=== PATIENT | female | born 1995 | race Two or more races ===

== ENCOUNTER 2018-06-17 16:45 | Emergency (ER) | payer MEDICAID ==
[~2018-06-17] VITALS: Ht 162.6 cm; Wt 64.4 kg
[~2018-06-17 16:45] MED LIST: PREN-153 OR
[2018-06-17 18:20] LABS: Basophils # (auto) 0 uL; Basophils % (auto) 0.3 % (0.0-2.0); Eosinophils # (auto) 0 uL; Eosinophils % (auto) 0.3 % (0.0-7.0); Hematocrit 40.3 % (36.0-46.0); Hemoglobin 13.7 g/dL (12.2-16.2); Lymphocytes # (auto) 1.5 uL; Lymphocytes % (auto) 19.1 % (10.0-50.0); Mean Corpuscular Hemoglobin 29.9 pg (28.0-32.0); Mean Corpuscular Hgb Conc. 33.9 g/dL (32.0-36.0); Mean Corpuscular Volume 88.2 fL (80.0-100.0); Monocytes # (auto) 0.4 uL; Monocytes % (auto) 4.8 % (0.0-12.0); Neutrophils % (auto) 75.5 % (37.0-80.0); Nucleated Red Blood Cells % 0.1 %; Platelet Count (auto) 281 10^3/uL (140-450); Red Blood Cells 4.57 10^6/uL (4.0-5.20); Red Cell Distribution Width 12.5 % (11.8-14.3); White Blood Cell 7.9 10^3/uL (4.4-10.8)
[2018-06-17 19:17] LABS: Urine Bacteria MOD /hpf (None Seen); Urine WBC 201 /hpf (0 - 5)
[2018-06-17 19:18] LABS: Urine Specific Gravity 1.026 (1.001-1.035)
[2018-06-17 19:26] VITALS: BP 139/66
[2018-06-17 22:03] LABS: Anion Gap 9.2 (5-15); Blood Urea Nitrogen 6 mg/dL (7-18); Carbon Dioxide 26.8 mmol/L (21-32); Chloride 103 mmol/L (98-107); Glucose 151 mg/dL (74-106); Potassium 3.6 mmol/L (3.5-5.1); Sodium 139 mmol/L (136-145)
[2018-06-17 22:04] LABS: Alkaline Phosphatase 96 U/L (45-117); Aspartate Aminotransferase 15 U/L (15-37); BUN/Creatinine Ratio 9.4; GFR African American 148 mL/min; GFR Non-African American 122 mL/min
[2018-06-17 22:05] LABS: Alanine Aminotransferase 28 U/L (13-56); Albumin 4.2 g/dL (3.4-5.0); Calcium 8.9 mg/dL (8.5-10.1)
[2018-06-17 22:06] LABS: Bilirubin, Total 0.4 mg/dL (0.2-1.0); Total Protein 8.1 g/dL (6.4-8.2)
== END 2018-06-17 20:36 | disposition home or self-care (01) ==
LOC: ER 16:52
DX: O23.41 Unspecified infection of urinary tract in pregnancy, first trimester (principal); Z3A.10 10 weeks gestation of pregnancy
CPT/HCPCS: 36415; 76801; 76817; 80053; 81001; 84702; 85025

== ENCOUNTER 2024-08-15 11:28 | Observation (INO) | payer MEDICAID ==
[~2024-08-15 11:28] MED LIST changes: -PREN-153 OR; +PREN1TAB71 OR
--- NOTE | 2024-08-16 15:21 | DVHDS2 ---
Physician Discharge Progress N Final Diagnosis: gdm Operations or Procedures: Operations or Procedures nst,sono Condition on Discharge: Good Disposition: Home Discharge Instructions: Diet: Consistent carbohydrate Activity: No Restrictions, As Tolerated Follow Up/Referral: Retrun weekly for nst/bpp Medications: na Follow Up Care: Specialist: 3d Discharge Statement: "Patient was advised to return to the ER or call 911 if any headaches, dizziness, shortness of breath, chest pain, abdominal pain, bleeding, fevers, or worsening of medical condition. Patient was counseled about treatment plan, medications, possible side effects, patientverbalized understanding. All questions were answered to the best of my ability. This discharge took greater then 30 minutes in planning, reviewing documentation, counseling the patient, and discussing with other team members." Visit Coding OBGYN Date of Service: Aug 15, 2024 Billing Provider: SALMA CABA DO PATIENT CARRIER Common Visit Codes: 35273-MPY/OBS SAME DATE (HIGH) PATIENT CARRIER Procedure Codes: 02121-13- NON-STRESS TEST SALMA CABA DO Aug 16, 2024 15:20
== END 2024-08-15 12:21 | disposition home or self-care (01) ==
LOC: LDRP 11:28
PROVIDERS: ADMIT Obstetrics & Gynecology; ATTEND Obstetrics & Gynecology
DX: O24.419 Gestational diabetes mellitus in pregnancy, unspecified control (principal); O62.9 Abnormality of forces of labor, unspecified; Z3A.32 32 weeks gestation of pregnancy; Z79.899 Other long term (current) drug therapy; Z98.890 Other specified postprocedural states
CPT/HCPCS: 59025; 81002; 94760; G0378

== ENCOUNTER 2024-08-22 11:03 | Observation (INO) | payer MEDICAID ==
--- NOTE | 2024-08-22 12:01 | DVH ---
BIOPHYSICAL PROFILE HISTORY: GDMA1 TECHNIQUE: Multiple transabdominal real-time grayscale sonographic images through the gravid uterus of the fetus with duplex Doppler color flow and M-mode spectral analysis FINDINGS: BIOPHYSICAL PROFILE: breathing score: Transabdominal movement score: 2 tone score: 2 Quantitative ANAM score: 2 (ANAM: 0.1 Cm.) Total score: 8/8 The cervix not measured Single live fetus in cephalic presentation. heart rate 139 beats per minute. Anterior Grade grade 2-3 placenta without previa or abruption Single live fetus at 33 weeks 3 days Biophysical profile score 8/8 corresponding to an ARANZA of 10/07/2024. Estimated weight not estimated g IMPRESSION: 1. Biophysical profile score: 8/8 HS:Y
--- NOTE | 2024-08-23 05:45 | DVHDS2 ---
Physician Discharge Progress N Final Diagnosis: GDM 33WKS Operations or Procedures: Operations or Procedures NST,SONO Other Interventions Other Interventions 33WKS Condition on Discharge: Good Disposition: Home Discharge Instructions: Diet: Consistent carbohydrate Activity: Light activity Medications: NA Follow Up Care: Specialist: 5D Discharge Statement: "Patient was advised to return to the ER or call 911 if any headaches, dizziness, shortness of breath, chest pain, abdominal pain, bleeding, fevers, or worsening of medical condition. Patient was counseled about treatment plan, medications, possible side effects, patientverbalized understanding. All questions were answered to the best of my ability. This discharge took greater then 30 minutes in planning, reviewing documentation, counseling the patient, and discussing with other team members." Visit Coding OBGYN Date of Service: Aug 22, 2024 Billing Provider: SALMA CABA DO JEWELRY POLISHER Common Visit Codes: 45968-[id number] OBS CARE (HIGH) JEWELRY POLISHER Procedure Codes: 67583-94- NON-STRESS TEST SALMA CABA DO Aug 23, 2024 05:45
== END 2024-08-22 12:36 | disposition home or self-care (01) ==
LOC: LDRP 11:03
PROVIDERS: ADMIT Obstetrics & Gynecology; ATTEND Obstetrics & Gynecology
DX: O24.419 Gestational diabetes mellitus in pregnancy, unspecified control (principal); Z3A.33 33 weeks gestation of pregnancy; Z79.899 Other long term (current) drug therapy
CPT/HCPCS: 59025; 76818; 81002; 82948; 82962; 94760; G0378

== ENCOUNTER 2024-08-29 12:25 | Observation (INO) | payer MEDICAID ==
--- NOTE | 2024-08-29 14:40 | DVH ---
BIOPHYSICAL PROFILE HISTORY: GDMA1 Comparison Study: none TECHNIQUE: Multiple real-time grayscale sonographic images through the gravid uterus of the fetus wi th duplex Doppler color flow and M-mode spectral analysis FINDINGS: BIOPHYSICAL PROFILE: breathing score: 2 movement score: 2 tone score: 2 Quantitative ANAM score: 2 (ANAM: 10.4 Cm.) Total score: 8 The cervix is not visualized. Single live fetus in cephalic presentation. heart rate 147 beats per minute. Anterior placenta without previa or abruption IMPRESSION: Biophysical profile score: 8
[2024-08-29] MEDS ORDERED: CEPH250C PO (15:24)
--- NOTE | 2024-08-29 15:50 | DVHDS2 ---
Physician Discharge Progress N Final Diagnosis: gdm 34 wks Operations or Procedures: Operations or Procedures nst34 wks,sono Consultations: Consultations seen by elvira Condition on Discharge: Good Disposition: Home Discharge Instructions: Diet: Consistent carbohydrate Activity: No Restrictions, As Tolerated Medications: na Follow Up Care: Specialist: 1w Discharge Statement: "Patient was advised to return to the ER or call 911 if any headaches, dizziness, shortness of breath, chest pain, abdominal pain, bleeding, fevers, or worsening of medical condition. Patient was counseled about treatment plan, medications, possible side effects, patientverbalized understanding. All questions were answered to the best of my ability. This discharge took greater then 30 minutes in planning, reviewing documentation, counseling the patient, and discussing with other team members." Visit Coding OBGYN Date of Service: Aug 29, 2024 Billing Provider: SALMA CABA DO IT SALES REPRESENTATIVE Common Visit Codes: 24826-COI/OBS DISCH DAY >30MIN IT SALES REPRESENTATIVE Consultation Codes: 09922-[id number] CONSULT <55MIN IT SALES REPRESENTATIVE Procedure Codes: 21469-82- NON-STRESS TEST SALMA CABA DO Aug 29, 2024 15:50
== END 2024-08-29 15:55 | disposition home or self-care (01) ==
LOC: LDRP 13:28 → UNDOADMOB 13:28 → LDRP 13:55
PROVIDERS: ADMIT Obstetrics & Gynecology; ATTEND Obstetrics & Gynecology
DX: O24.419 Gestational diabetes mellitus in pregnancy, unspecified control (principal); Z3A.34 34 weeks gestation of pregnancy; Z79.899 Other long term (current) drug therapy; Z98.890 Other specified postprocedural states
CPT/HCPCS: 59025; 76818; 81002; 82948; 82962; 94760; G0378

== ENCOUNTER 2024-09-05 11:17 | Observation (INO) | payer MEDICAID ==
[~2024-09-05 11:17] MED LIST changes: +CEPH250C PO
--- NOTE | 2024-09-05 15:05 | DVH ---
BIOPHYSICAL PROFILE HISTORY: gdma1 TECHNIQUE: Multiple transabdominal real-time grayscale sonographic images through the gravid uterus of the fetus with duplex Doppler color flow and M-mode spectral analysis FINDINGS: BIOPHYSICAL PROFILE: breathing score: 2 movement score: 2 tone score: 2 Quantitative ANAM score: 2 (ANAM: 13 Cm.) Total score: 8 IMPRESSION: Biophysical profile score: 8/8
--- NOTE | 2024-09-06 09:51 | DVHDS2 ---
Physician Discharge Progress N Final Diagnosis: gdm Operations or Procedures: Operations or Procedures nst,sono Condition on Discharge: Good Disposition: Home Discharge Instructions: Diet: Consistent carbohydrate Activity: No Restrictions, As Tolerated Medications: na Follow Up Care: Specialist: 1w Discharge Statement: "Patient was advised to return to the ER or call 911 if any headaches, dizziness, shortness of breath, chest pain, abdominal pain, bleeding, fevers, or worsening of medical condition. Patient was counseled about treatment plan, medications, possible side effects, patientverbalized understanding. All questions were answered to the best of my ability. This discharge took greater then 30 minutes in planning, reviewing documentation, counseling the patient, and discussing with other team members." Visit Coding OBGYN Date of Service: Sep 05, 2024 Billing Provider: SALMA CABA DO CISCO ADMINISTRATOR Common Visit Codes: 55286-WYWCEEP INP/OBS CARE (HIGH) CISCO ADMINISTRATOR Procedure Codes: 27424-19- NON-STRESS TEST SALMA CABA DO Sep 06, 2024 09:51
== END 2024-09-05 15:39 | disposition home or self-care (01) ==
LOC: LDRP 14:10
PROVIDERS: ADMIT Obstetrics & Gynecology; ATTEND Obstetrics & Gynecology
DX: O24.419 Gestational diabetes mellitus in pregnancy, unspecified control (principal); Z79.899 Other long term (current) drug therapy; Z98.890 Other specified postprocedural states; Z3A.35 35 weeks gestation of pregnancy
CPT/HCPCS: 76819; 81002; 82948; 82962; 94760; G0378; 59025; 76818

== ENCOUNTER 2024-09-08 13:16 | Observation (INO) | payer MEDICAID ==
--- NOTE | 2024-09-08 14:10 | DVH ---
CLINICAL HISTORY: Gestational diabetes. COMPARISON: US BIOPHYSICAL PROFILE on DOS: 09/05/24, US BIOPHYSICAL PROFILE on DOS: 08/29/24, US BIOPHY SICAL PROFILE on DOS: 08/22/24 TECHNIQUE: biophysical profile was performed. Transabdominal sonographic images of the fetus we re obtained. FINDINGS: The fetus is in cephalic position. heart rate measures 152 BPM. Amniotic fluid index measures 11.0 cm. The placenta is anterior in position. BPP profile is an overall score of 8/8, with 2/2 points for breathing, with at least one episode of breathing over a 30 second duration during a 30 minute observation, 2/2 points for m ovements, with 3 or more discrete body or limb movements, 2/2 points for tone, with one or more episodes of extremity extension with return to flexion, or opening and closing of hand, and 2/ 2 points for amniotic fluid, with at least 1 pocket of amniotic fluid that measures 2 cm in 2 perpend icular planes. IMPRESSION: BPP score of 8/8.
--- NOTE | 2024-09-10 14:12 | DVHDS2 ---
Physician Discharge Progress N Final Diagnosis: gdm 35wks Operations or Procedures: Operations or Procedures nst,sono 35wks Condition on Discharge: Good Disposition: Home Discharge Instructions: Diet: Consistent carbohydrate Activity: No Restrictions, As Tolerated Medications: na Follow Up Care: Specialist: 3d Discharge Statement: "Patient was advised to return to the ER or call 911 if any headaches, dizziness, shortness of breath, chest pain, abdominal pain, bleeding, fevers, or worsening of medical condition. Patient was counseled about treatment plan, medications, possible side effects, patientverbalized understanding. All questions were answered to the best of my ability. This discharge took greater then 30 minutes in planning, reviewing docum entation, counseling the patient, and discussing with other team members." Visit Coding OBGYN Date of Service: Sep 08, 2024 Billing Provider: SALMA CABA DO CORRECTIONAL COUNSELOR Common Visit Codes: 55567-GINVVAZ INP/OBS CARE (HIGH) CORRECTIONAL COUNSELOR Procedure Codes: 30551-75- NON-STRESS TEST SALMA CABA DO Sep 10, 2024 14:12
== END 2024-09-08 14:44 | disposition home or self-care (01) ==
LOC: LDRP 13:16
PROVIDERS: ADMIT Obstetrics & Gynecology; ATTEND Obstetrics & Gynecology
DX: O24.419 Gestational diabetes mellitus in pregnancy, unspecified control (principal); Z98.890 Other specified postprocedural states; Z79.899 Other long term (current) drug therapy; Z3A.35 35 weeks gestation of pregnancy
CPT/HCPCS: 59025; 76819; 81002; 82948; 82962; 87086; 94760; G0378; 76818

== ENCOUNTER 2024-09-12 06:22 | Observation (INO) | payer MEDICAID ==
[~2024-09-12] VITALS: Ht 157.5 cm; Wt 75.7 kg
--- NOTE | 2024-09-12 13:16 | DVH ---
BIOPHYSICAL PROFILE HISTORY: GDMA1 Comparison Study: None TECHNIQUE: Multiple real-time grayscale sonographic images through the gravid uterus of the fetus wi th duplex Doppler color flow and M-mode spectral analysis FINDINGS: BIOPHYSICAL PROFILE: breathing score: 2 movement score: 2 tone score: 2 Quantitative ANAM score: 2 (ANAM: 11.4 Cm.) Total score: 8 The cervix is not visualized Single live fetus in cephalic presentation. heart rate 155 beats per minute. Anterior placenta without previa or abruption IMPRESSION: Biophysical profile score: 8
--- NOTE | 2024-09-13 15:17 | DVHDS2 ---
Physician Discharge Progress N Final Diagnosis: gdm 36wks Operations or Procedures: Operations or Procedures nst 36wks,sono Condition on Discharge: Good Disposition: Home Discharge Instructions: Diet: Consistent carbohydrate Activity: Light activity Medications: na Follow Up Care: Specialist: 3d Discharge Statement: "Patient was advised to return to the ER or call 911 if any headaches, dizziness, shortness of breath, chest pain, abdominal pain, bleeding, fevers, or worsening of medical condition. Patient was counseled about treatment plan, medications, possible side effects, patientverbalized understanding. All questions were answered to the best of my ability. This discharge took greater then 30 minutes in planning, reviewing documentation, counseling the patient, and discussing with other team members." Visit Coding OBGYN Date of Service: Sep 12, 2024 Billing Provider: SALMA CABA DO BULK FOLDER Common Visit Codes: 28064-[id number] INP/OBS CARE (HIGH) BULK FOLDER Procedure Codes: 85297-05- NON-STRESS TEST SALMA CABA DO Sep 13, 2024 15:17
== END 2024-09-12 13:29 | disposition home or self-care (01) ==
LOC: LDRP 12:09 → UNDOADMOB 12:09 → LDRP 12:12
PROVIDERS: ADMIT Obstetrics & Gynecology; ATTEND Obstetrics & Gynecology
DX: O24.419 Gestational diabetes mellitus in pregnancy, unspecified control (principal); Z98.890 Other specified postprocedural states; Z79.899 Other long term (current) drug therapy; Z3A.36 36 weeks gestation of pregnancy
CPT/HCPCS: 59025; 76819; 81002; 94760; G0378; 76818

== ENCOUNTER 2024-09-19 06:18 | Observation (INO) | payer MEDICAID ==
--- NOTE | 2024-09-19 16:27 | DVH ---
Procedure: US BIOPHYSICAL PROFILE 09/19/2024 03:48 PM Indication: GDMA1 Comparison: US BIOPHYSICAL PROFILE on DOS: 09/12/24, US BIOPHYSICAL PROFILE on DOS: 09/08/24, US BIOPHYSI HERNESTO PROFILE on DOS: 09/05/24 Technique: Sonogram of gravid uterus utilizing grayscale and color techniques. FINDINGS: Single living intrauterine gestation. Presentation: Cephalic Placenta: Anterior, no previa heart rate: 133 bpm ANAM: 14.8 cm, DVP: 5.9 cm Maternal cervix: Not visualized Biophysical Profile: breathing score: 2 movement score: 2 tone: 2 Quantitative ANAM score: 2 Total score: 8/8 IMPRESSION: 1. Single living as above. 2. Biophysical profile score: 8/8.
--- NOTE | 2024-09-19 21:33 | DVHDS2 ---
Physician Discharge Progress N Final Diagnosis: testing for GDM, A1 Operations or Procedures: Operations or Procedures 29yo IUP@37.1wks VSS NST reactive BPP wnl FKC/labor precautions reviewed Other Interventions Other Interventions [address] [address] Ph: [phone] DIAGNOSTIC IMAGING Diagnostic Imaging Report : [id number] Signed PATIENT: AUDELIA BURKS ACCT: [id number] UNIT: [id number] : 1995 LOC: [facility] ROOM / BED: TRIAGE2 / A AGE / SEX: 29 / F ADM STATUS: ADM IN SERVICE 1510 ORDERING PHYSICIAN: ADRI DUNNE CNM PROCEDURE(s): BPP - BIOPHYSICAL PROFILE REASON: GDMA1 ORDER NUMBER(s): [id number], ACCESSION NUMBER(s): [id number] Procedure: US BIOPHYSICAL PROFILE 09/19/2024 03:48 PM Indication: GDMA1 Comparison: US BIOPHYSICAL PROFILE on DOS: 09/12/24, US BIOPHYSICAL PROFILE on DOS: 09/08/24, US BIOPHYSICAL PROFILE on DOS: 09/05/24 Technique: Sonogram of gravid uterus utilizing grayscale and color techniques. FINDINGS: Single living intrauterine gestation. Presentation: Cephalic Placenta: Anterior, no previa heart rate: 133 bpm ANAM: 14.8 cm, DVP: 5.9 cm Maternal cervix: Not visualized Biophysical Profile: breathing score: 2 movement score: 2 tone: 2 Quantitative ANAM score: 2 Total score: 8/8 IMPRESSION: 1. Single living as above. 2. Biophysical profile score: 8/8. ATED BY: ILA WHARTON MD DICTATED DATE/TIME: 09/19/241623 SIGNED BY: ILA WHARTON MD SIGNED DATE/TIME: 09/19/241623 CC: Condition on Discharge: Stable Disposition: Home Discharge Instructions: Diet: Consistent carbohydrate Activity: No Restrictions, As Tolerated Medications: see med list Follow Up Care: Specialist: f/u in 1 wk Discharge Statement: "Patient was advised to return to the ER or call 911 if any headaches, dizziness, shortness of breath, chest pain, abdominal pain, bleeding, fevers, or worsening of medical condition. Patient was counseled about treatment plan, medications, possible side effects, patientverbalized understanding. All questions were answered to the best of my ability. This discharge took greater then 30 minutes in planning, reviewing documentation, counseling the patient, and discussing with other team members." Visit Coding OBGYN Date of Service: Sep 19, 2024 Billing Provider: ADRI DUNNE CNM SIZING SPRAYER Common Visit Codes: 05703-UEBLYRI OBS CARE (HIGH) SIZING SPRAYER Procedure Codes: 86667-81- NON-STRESS TEST ADRI DUNNE CNM Sep 19, 2024 21:33
== END 2024-09-19 16:43 | disposition home or self-care (01) ==
LOC: LDRP 15:08 → UNDOADMOB 15:08 → LDRP 15:15
PROVIDERS: ADMIT Obstetrics & Gynecology; ATTEND Obstetrics & Gynecology
DX: O24.419 Gestational diabetes mellitus in pregnancy, unspecified control (principal); Z98.890 Other specified postprocedural states; Z79.899 Other long term (current) drug therapy; Z3A.37 37 weeks gestation of pregnancy
CPT/HCPCS: 76819; 81002; 82948; 94760; G0378; 59025; 76818

== ENCOUNTER 2024-09-24 14:18 | Observation (INO) | payer MEDICAID ==
--- NOTE | 2024-09-24 15:19 | DVH ---
BIOPHYSICAL PROFILE HISTORY: gdma1 Comparison Study: 09/19/2024 TECHNIQUE: Multiple real-time grayscale sonographic images through the gravid uterus of the fetus wi th duplex Doppler color flow and M-mode spectral analysis FINDINGS: BIOPHYSICAL PROFILE: breathing score: 2 movement score: 2 tone score: 2 Quantitative ANAM score: 2 (ANAM: 14.2 Cm.) Total score: 8 The cervix is not visualized Single live fetus in cephalic presentation. heart rate 147 beats per minute. Anterior placenta without previa or abruption IMPRESSION: Biophysical profile score: 8
[2024-09-24 15:46] LABS: Basophils # (auto) 0 10 ^3/uL (0-0.2); Basophils % (auto) 0.2 % (0.0-2.0); Eosinophils # (auto) 0 10 ^3/uL (0-0.8); Eosinophils % (auto) 0.5 % (0.0-7.0); Hematocrit 32.6 % (36.0-46.0); Hemoglobin 10.5 g/dL (12.2-16.2); Lymphocytes # (auto) 1.1 10 ^3/uL (0.4-5.4); Lymphocytes % (auto) 19.4 % (10.0-50.0); Mean Corpuscular Hemoglobin 27.2 pg (28.0-32.0); Mean Corpuscular Hgb Conc. 32.1 g/dL (32.0-36.0); Mean Corpuscular Volume 84.8 fL (80.0-100.0); Monocytes # (auto) 0.5 10 ^3/uL (0-1.3); Monocytes % (auto) 8.7 % (0.0-12.0); Neutrophils # (auto) 4.1 10 ^3/uL (1.6-8.6); Neutrophils % (auto) 71.2 % (37.0-80.0); Nucleated Red Blood Cells % 0.2 %; Platelet Count (auto) 271 10^3/uL (140-450); Red Blood Cells 3.85 10^6/uL (4.0-5.20); Red Cell Distribution Width 15.2 % (11.8-14.3); White Blood Cell 5.8 10^3/uL (4.4-10.8)
[2024-09-24 16:03] LABS: Albumin 3.9 g/dL (3.2-4.8); Anion Gap 6 (5-15); BUN/Creatinine Ratio 16.3 (10.0-20.0); Calcium 9.2 mg/dL (8.7-10.4); Carbon Dioxide 24 mmol/L (20-31); Glucose 97 mg/dL (74-106); Potassium 3.6 mmol/L (3.5-5.1); Sodium 138 mmol/L (136-145); Total Protein 6.5 g/dL (5.7-8.2); Uric Acid 4.1 mg/dL (3.1-7.8)
[2024-09-24 16:04] LABS: Bilirubin, Total 0.3 mg/dL (0.2-1.0)
[2024-09-24 16:07] LABS: Alanine Aminotransferase < 9 U/L (7-40); Alkaline Phosphatase 183 U/L (46-116); Aspartate Aminotransferase 10 U/L (13-40); Blood Urea Nitrogen 7 mg/dL (9-23); Chloride 108 mmol/L (98-107)
[2024-09-24 16:11] LABS: Urine Bacteria FEW /hpf (None Seen); Urine Blood Negative /uL (Negative); Urine Clarity Turbid (Clear); Urine Color Yellow (Yellow); Urine Protein, UAD TRACE (Negative); Urine Squamous Epithelial Cell MANY /hpf (<5); Urine Urobilinogen 4 mg/dL (Negative); Urine WBC 3 /HPF (0-5)
[2024-09-24 16:12] LABS: Protein, Urine 19.8 mg/dL (1-14)
[2024-09-24 16:14] LABS: Creatinine, Urine 147.11 mg/dL (30.0-125.0); Urine Protein/Creatinine Ratio 0.13
[2024-09-24 16:29] LABS: INR 0.98 (0.9-1.15); Partial Thromboplastin Time 27.8 SEC (24.5-34.5); Prothrombin Time 10.4 sec (9.3-11.8)
--- NOTE | 2024-09-24 22:24 | DVHDS2 ---
Physician Discharge Progress N Final Diagnosis: testing for GDMA1 and PreE labs Operations or Procedures: Operations or Procedures 29yo IUP@38.1wks, +FM, Denies LOF/VB/DIAS/vision changes/RUQ pain. VSS NST reactive FKC/PreE/labor precautions reviewed f/u on 09/26/24 AM with [address] Márquez consulted, agrees with POC. Laboratory Tests Test 09/24/24 15:00 09/24/24 15:24 09/24/24 15:33 Range/Units Urine Color Yellow Yellow Urine Clarity Turbid H Clear Urine pH 6.0 5.0-9.0 Urine Specific [place] 1.030 1.001-1.035 Urine Protein Trace H Negative Urine Ketones 1+ H Negative Urine Blood Negative Negative /uL Urine Nitrite Negative Negative Urine Bilirubin Negative Negative Urine Urobilinogen 4 H Negative mg/dL Urine Leukocyte Esterase 2+ Negative /uL Urine RBC 2 0 - 4 /hpf Urine Microscopic WBC 3 0-5 /HPF Urine Squamous Epithelial Cells Many <5 /hpf Urine Bacteria Few H None Seen /hpf Urine Creatinine 147.11 H 30.0-125.0 mg/dL Urine Protein/Creatinine Ratio 0.13 Urine Glucose Trace Normal mg/dL Urine Total Protein 19.8 H 1-14 mg/dL White Blood Count 5.8 4.4-10.8 10^3/uL Red Blood Count 3.85 L 4.0-5.20 10^6/uL Hemoglobin 10.5 L 12.2-16.2 g/dL Hematocrit 32.6 L 36.0-46.0 % Mean Corpuscular Volume 84.8 80.0-100.0 fL Mean Corpuscular Hemoglobin 27.2 L 28.0-32.0 pg Mean Corpuscular Hemoglobin Concent 32.1 32.0-36.0 g/dL Red Cell Distribution Width 15.2 H 11.8-14.3 % Platelet Count 271 140-450 10^3/uL Mean Platelet Volume 8.4 6.9-10.8 fL Neutrophils (%) (Auto) 71.2 37.0-80.0 % Lymphocytes (%) (Auto) 19.4 10.0-50.0 % Monocytes (%) (Auto) 8.7 0.0-12.0 % Eosinophils (%) (Auto) 0.5 0.0-7.0 % Basophils (%) (Auto) 0.2 0.0-2.0 % Neutrophils # (Auto) 4.1 1.6-8.6 10 ^3/uL Lymphocytes # (Auto) 1.1 0.4-5.4 10 ^3/uL Monocytes # (Auto) 0.5 0-1.3 10 ^3/uL Eosinophils # (Auto) 0 0-0.8 10 ^3/uL Basophils # (Auto) 0 0-0.2 10 ^3/uL Nucleated Red Blood Cells 0.2 % Prothrombin Time 10.4 9.3-11.8 sec Prothrombin Time INR 0.98 0.9-1.15 Activated Partial Thromboplast Time 27.8 24.5-34.5 SEC Fibrinogen 416 H 177-375 mg/dL Sodium Level 138 136-145 mmol/L Potassium Level 3.6 3.5-5.1 mmol/L Chloride Level 108 H 98-107 mmol/L Carbon Dioxide Level 24 20-31 mmol/L Anion Gap 6 5-15 Blood Urea Nitrogen 7 L 9-23 mg/dL Creatinine 0.43 L 0.550-1.02 mg/dL Glomerular Filtration Rate Calc 135 >90 mL/min BUN/Creatinine Ratio 16.3 10.0-20.0 Serum Glucose 97 74-106 mg/dL Uric Acid 4.1 3.1-7.8 mg/dL Calcium Level 9.2 8.7-10.4 mg/dL Total Bilirubin 0.3 0.2-1.0 mg/dL Aspartate Amino Transferase (AST) 10 L 13-40 U/L Alanine Aminotransferase (ALT) < 9 7-40 U/L Alkaline Phosphatase 183 H 46-116 U/L Total Protein 6.5 5.7-8.2 g/dL Albumin 3.9 3.2-4.8 g/dL POC Glucose 103 70-106 mg/dl Other Interventions Other Interventions [address] [address] Ph: [phone] DIAGNOSTIC IMAGING Diagnostic Imaging Report : [id number] Signed PATIENT: AUDELIA BURKS ACCT: [id number] UNIT: [id number] : 1995 LOC: [facility] ROOM / BED: TRIAGE3 / A AGE / SEX: 29 / F ADM STATUS: ADM IN SERVICE 1423 ORDERING PHYSICIAN: ADRI DUNNE CNM PROCEDURE(s): BPP - BIOPHYSICAL PROFILE REASON: gdma1 ORDER NUMBER(s): [id number], ACCESSION NUMBER(s): [id number] BIOPHYSICAL PROFILE HISTORY: gdma1 Comparison Study: 09/19/2024 TECHNIQUE: Multiple real-time grayscale sonographic images through the gravid uterus of the fetus with duplex Doppler color flow and M-mode spectral analysis FINDINGS: BIOPHYSICAL PROFILE: breathing score: 2 movement score: 2 tone score: 2 Quantitative ANAM score: 2 (ANAM: 14.2 Cm.) Total score: 8 The cervix is not visualized Single live fetus in cephalic presentation. heart rate 147 beats per minute. Anterior placenta without previa or abruption IMPRESSION: Biophysical profile score: 8 ATED BY: DWAYNE LAZAR MD DICTATED DATE/TIME: 09/24/241515 SIGNED BY: DWAYNE LAZAR MD SIGNED DATE/TIME: 09/24/241515 CC: Condition on Discharge: Stable Disposition: Home Discharge Instructions: Diet: Regular Activity: No Restrictions, As Tolerated Medications: see med list Follow Up Care: Specialist: f/u on 09/26/24 AM with 24 hour urine collection Discharge Statement: "Patient was advised to return to the ER or call 911 if any headaches, dizziness, shortness of breath, chest pain, abdominal pain, bleeding, fevers, or worsening of medical condition. Patient was counseled about treatment plan, medications, possible side effects, patientverbalized understanding. All questions were answered to the best of my ability. This discharge took greater then 30 minutes in planning, reviewing docume ntation, counseling the patient, and discussing with other team members." Visit Coding OBGYN Date of Service: Sep 24, 2024 Billing Provider: ADRI DUNNE CNM MICA PATCHER Common Visit Codes: 18805-[id number] OBS CARE (HIGH) MICA PATCHER Procedure Codes: 43211-23- NON-STRESS TEST ADRI DUNNE CNM Sep 24, 2024 22:24
== END 2024-09-24 17:11 | disposition home or self-care (01) ==
LOC: LDRP 14:18
PROVIDERS: ADMIT Obstetrics & Gynecology; ATTEND Obstetrics & Gynecology
DX: O24.419 Gestational diabetes mellitus in pregnancy, unspecified control (principal); Z3A.38 38 weeks gestation of pregnancy; Z79.899 Other long term (current) drug therapy; Z86.2 Personal history of diseases of the blood and blood-forming organs and certain disorders involving the immune mechanism
CPT/HCPCS: 36415; 59025; 76819; 80053; 81001; 81002; 82570; 82948; 82962; 84156; 84550; 85025; 85384; 85610; 85730; 94760; G0378

== ENCOUNTER 2024-09-26 06:21 | Observation (INO) | payer MEDICAID ==
[2024-09-26 12:46] LABS: Urine Bacteria FEW /hpf (None Seen); Urine Blood Negative /uL (Negative); Urine Clarity Turbid (Clear); Urine Color Yellow (Yellow); Urine Mucus FEW (None Seen); Urine Protein, UAD TRACE (Negative); Urine Specific Gravity 1.027 (1.001-1.035); Urine Squamous Epithelial Cell MANY /hpf (<5); Urine Urobilinogen Normal (Negative); Urine WBC 23 /HPF (0-5)
[2024-09-26 13:00] LABS: Protein, Urine 22.4 mg/dL (1-14)
[2024-09-26 13:02] LABS: Creatinine, Urine 142.3 mg/dL (30.0-125.0); Urine Protein/Creatinine Ratio 0.16
--- NOTE | 2024-09-26 13:19 | DVH ---
BIOPHYSICAL PROFILE HISTORY: GDMA2 TECHNIQUE: Multiple transabdominal real-time grayscale sonographic images through the gravid uterus of the fetus with duplex Doppler color flow and M-mode spectral analysis FINDINGS: BIOPHYSICAL PROFILE: breathing score: 2 movement score: 2 tone score: 2 Quantitative ANAM score: 2 (ANAM: 16.2 Cm.) Total score: 8 The cervix well visualized. Single live fetus in cephalic presentation. heart rate 173 beats per minute. Anterior placenta without previa or abruption IMPRESSION: Biophysical profile score: 8
[2024-09-26 13:51] LABS: 24 Hr. Total Protein, Urine 11.9 mg/24 Hr (<149.1)
--- NOTE | 2024-09-27 12:58 | DVHDS2 ---
Physician Discharge Progress N Final Diagnosis: iup at 30wks with gdm and pih Operations or Procedures: Operations or Procedures nst,sono Condition on Discharge: Good Disposition: Home Discharge Instructions: Diet: Regular Activity: Light activity Medications: na Follow Up Care: Specialist: 4d Discharge Statement: "Patient was advised to return to the ER or call 911 if any headaches, dizziness, shortness of breath, chest pain, abdominal pain, bleeding, fevers, or worsening of medical condition. Patient was counseled about treatment plan, medications, possible side effects, patientverbalized understanding. All questions were answered to the best of my ability. This discharge took greater then 30 minutes in planning, reviewing documentation, counseling the patient, and discussing with other team members." Visit Coding OBGYN Date of Service: Sep 26, 2024 Billing Provider: SALMA CABA DO MANAGER FLOAT Common Visit Codes: 91819-[id number] INP/OBS CARE (HIGH) MANAGER FLOAT Procedure Codes: 12343-70- NON-STRESS TEST SALMA CABA DO Sep 27, 2024 12:58
== END 2024-09-26 14:17 | disposition home or self-care (01) ==
LOC: LDRP 11:48
PROVIDERS: ADMIT Obstetrics & Gynecology; ATTEND Obstetrics & Gynecology
DX: O13.3 Gestational [pregnancy-induced] hypertension without significant proteinuria, third trimester (principal); O24.419 Gestational diabetes mellitus in pregnancy, unspecified control; Z3A.30 30 weeks gestation of pregnancy; Z79.899 Other long term (current) drug therapy; Z98.890 Other specified postprocedural states
CPT/HCPCS: 59025; 76819; 81001; 81002; 82570; 82948; 84156; 94760; G0378

== ENCOUNTER 2024-10-03 12:51 | Observation (INO) | payer MEDICAID ==
--- NOTE | 2024-10-03 13:55 | DVH ---
BIOPHYSICAL PROFILE HISTORY: gdma1 Comparison Study: 09/26/2024 TECHNIQUE: Multiple real-time grayscale sonographic images through the gravid uterus of the fetus wi th duplex Doppler color flow and M-mode spectral analysis FINDINGS: BIOPHYSICAL PROFILE: breathing score: 2 movement score: 2 tone score: 2 Quantitative ANAM score: 2 (ANAM: 11.1 Cm.) Total score: 8 The cervix is not visualized Single live fetus in cephalic presentation. heart rate 141 beats per minute. Grade 3, anterior placenta without previa or abruption IMPRESSION: Biophysical profile score: 8 Positive nuchal cord.
--- NOTE | 2024-10-04 13:13 | DVHDS2 ---
Physician Discharge Progress N Final Diagnosis: GDM 39WKS Operations or Procedures: Operations or Procedures NST 39WKS,SONO Condition on Discharge: Good Disposition: Home Discharge Instructions: Diet: Consistent carbohydrate Activity: No Restrictions, As Tolerated Medications: NA Follow Up Care: Specialist: INDUCTION MONDAY Discharge Statement: "Patient was advised to return to the ER or call 911 if any headaches, dizziness, shortness of breath, chest pain, abdominal pain, bleeding, fevers, or worsening of medical condition. Patient was counseled about treatment plan, medications, possible side effects, patientverbalized understanding. All questions were answered to the best of my ability. This discharge took greater then 30 minutes in planning, reviewing documentation, counseling the patient, and discussing with other team members." Visit Coding OBGYN Date of Service: Oct 04, 2024 Billing Provider: SALMA CABA DO ROPE SILICA MACHINE OPERATOR Common Visit Codes: 80638-[id number] INP/OBS CARE (HIGH) ROPE SILICA MACHINE OPERATOR Procedure Codes: 22138-70- NON-STRESS TEST SALMA CABA DO Oct 04, 2024 13:13
== END 2024-10-03 14:28 | disposition home or self-care (01) ==
LOC: UNDOADMOB 12:51 → LDRP 12:51
PROVIDERS: ADMIT Obstetrics & Gynecology; ATTEND Obstetrics & Gynecology
DX: O24.419 Gestational diabetes mellitus in pregnancy, unspecified control (principal); Z79.899 Other long term (current) drug therapy; Z3A.39 39 weeks gestation of pregnancy
CPT/HCPCS: 59025; 76819; 81002; 82948; 82962; 94760; G0378; 76818

== ENCOUNTER 2024-10-05 08:26 | Inpatient (IN) | payer MEDICAID ==
[~2024-10-05] VITALS: Ht 157.5 cm; Wt 77.1 kg
[2024-10-05] MEDS ORDERED: LIDOCAINE 2%HCL (LOCAL ANESTH.) INJ 20ML MDV IJ PRN (08:45)
[2024-10-05] MEDS ORDERED: ACCU-CHEK COMFORT CURVE STRIP VI PRN (08:45)
[2024-10-05] MEDS ORDERED: NALBUPHINE HCL 10 MG/1ml INJECTION IV PRN (08:45)
[2024-10-05 09:29] LABS: Basophils # (auto) 0 10 ^3/uL (0-0.2); Basophils % (auto) 0.3 % (0.0-2.0); Eosinophils # (auto) 0 10 ^3/uL (0-0.8); Eosinophils % (auto) 0.4 % (0.0-7.0); Hematocrit 35.6 % (36.0-46.0); Hemoglobin 11.4 g/dL (12.2-16.2); Lymphocytes # (auto) 1.3 10 ^3/uL (0.4-5.4); Lymphocytes % (auto) 20.4 % (10.0-50.0); Mean Corpuscular Hemoglobin 27.2 pg (28.0-32.0); Mean Corpuscular Hgb Conc. 32.1 g/dL (32.0-36.0); Mean Corpuscular Volume 84.8 fL (80.0-100.0); Monocytes # (auto) 0.3 10 ^3/uL (0-1.3); Neutrophils # (auto) 4.6 10 ^3/uL (1.6-8.6); Neutrophils % (auto) 73.9 % (37.0-80.0); Platelet Count (auto) 280 10^3/uL (140-450); Red Blood Cells 4.19 10^6/uL (4.0-5.20); Red Cell Distribution Width 15.7 % (11.8-14.3); White Blood Cell 6.2 10^3/uL (4.4-10.8)
[2024-10-05 09:58] LABS: Albumin 4.2 g/dL (3.2-4.8); Anion Gap 11 (5-15); BUN/Creatinine Ratio 12.5 (10.0-20.0); Bilirubin, Total 0.4 mg/dL (0.2-1.0); Calcium 9.5 mg/dL (8.7-10.4); Carbon Dioxide 24 mmol/L (20-31); Chloride 103 mmol/L (98-107); Sodium 138 mmol/L (136-145); Total Protein 7.1 g/dL (5.7-8.2)
[2024-10-05] MEDS: LACTATED RINGER'S 1,000 ML IV SCH (09:59)
[2024-10-05 10:06] LABS: Alanine Aminotransferase < 9 U/L (7-40); Alkaline Phosphatase 237 U/L (46-116); Aspartate Aminotransferase < 8 U/L (13-40); Blood Urea Nitrogen 6 mg/dL (9-23); Glucose 120 mg/dL (74-106); Potassium 3.1 mmol/L (3.5-5.1)
[2024-10-05 10:09] LABS: Urine Bacteria FEW /hpf (None Seen); Urine Blood 2+ /uL (Negative); Urine Clarity Turbid (Clear); Urine Color Light-Orange (Yellow); Urine Mucus FEW (None Seen); Urine Protein, UAD TRACE (Negative); Urine Specific Gravity 1.023 (1.001-1.035); Urine Squamous Epithelial Cell MOD /hpf (<5); Urine Urobilinogen Normal (Negative); Urine WBC 19 /HPF (0-5)
[2024-10-05 10:12] LABS: Amphetamine Screen, Urine Neg (NEGATIVE); Barbiturate Scree,Urine Neg (NEGATIVE); Benzodiazephine Screen, Urine Neg (NEGATIVE); Cannabinoid Screen, Urine Neg (NEGATIVE); Cocaine Screen, Urine Neg (NEGATIVE); Opiate Scree,Urine Neg (NEGATIVE); Phencyclidine Screen, Urine Neg (NEGATIVE)
--- NOTE | 2024-10-05 10:26 | DVHHP ---
ADMIT DATE: 10/05/2024 CHIEF COMPLAINT: Here for induction of labor secondary to GDM. HISTORY OF PRESENT ILLNESS: The patient is a 29-year-old 3, para 2 with EDC 10/07/2024, estimated gestational age of 39 weeks, admitted for induction of labor secondary to GDM A1. The patient denies having any rupture of membrane or bleeding. PAST MEDICAL HISTORY: None. PAST SURGICAL HISTORY: None. SOCIAL HISTORY: None. FAMILY HISTORY: None. OBSTETRIC AND GYNECOLOGIC HISTORY: Two normal vaginal delivery. Blood type O positive, rubella immune, GBS negative. REVIEW OF SYSTEMS: Consistent with HPI. PHYSICAL EXAMINATION: VITAL SIGNS: Stable, afebrile. HEENT: Within normal limits. CARDIOVASCULAR: Regular rate and rhythm. LUNGS: Clear to auscultation. BREASTS: Symmetrical. No masses. ABDOMEN: Gravid. Positive heart. PELVIC: Closed, thick and high. EXTREMITIES: No clubbing, cyanosis or edema. IMPRESSION: Intrauterine at 39+ weeks with gestational diabetes mellitus A1, induction of labor. PLAN: Induction of labor. Informed consent obtained. Risks, complication of surgery including infection, bleeding, increased risk of discussed with the patient. Options reviewed. All questions answered. The patient fully understands. She wishes to proceed with induction of labor. DO SANAM Pritchett TID: [id number] RECEIPT: [id number]
[2024-10-05 10:30] LABS: INR 0.98 (0.9-1.15); Partial Thromboplastin Time 28.8 SEC (24.5-34.5); Prothrombin Time 10.4 sec (9.3-11.8)
--- NOTE | 2024-10-05 11:19 | DVHPN2 ---
Visit Coding OBGYN Date of Service: Oct 05, 2024 Billing Provider: SALMA CABA DO CIVIL ESTIMATOR Common Visit Codes: 46657-ZUU/OBS SAME DATE (HIGH) CIVIL ESTIMATOR Procedure Codes: 54245-30- NON-STRESS TEST SALMA CABA DO Oct 05, 2024 11:19
--- NOTE | 2024-10-05 11:20 | DVHPN2 ---
Chief Complaints Patient reports: No new complaints Nursing reports: No new complaints Objective Medications Current Medications Medications (Trade) Dose Ordered Sig/Maciej Route PRN Reason Start Time Stop Time Status Last Admin Benzocaine (Dermoplast) 1 applic PRN PRN TOP PERINEAL AREA DISCOMFORT 10/05/24 08:45 Diagnostic Test (Pha) (Accu-Chek Comfort Curve T) 1 strip Q4HP PRN Blood Sugar LESS THAN 60 10/05/24 08:45 Lactated Ringer's 1,000 ml @ 125 mls/hr Q8H IV 10/05/24 08:45 10/05/24 09:59 Lidocaine HCl (Xylocaine) 20 ml ONCE PRN IJ PERINEAL AREA DISCOMFORT 10/05/24 08:45 Misoprostol (Cytotec) 50 mcg Q4HPRN PRN PO CERVICAL RIPENING 10/05/24 08:45 Nalbuphine HCl (Nubain) 10 mg Q4HP PRN IV MODERATE PAIN (4-6 PAIN SCALE) 10/05/24 08:45 Sodium Lauryl Sulfate (Phisoderm) 240 ml PRN PRN TOP PERINEAL AREA DISCOMFORT 10/05/24 08:45 Witch Marie (Tucks) 1 pad PRN PRN TOP PERINEAL AREA DISCOMFORT 10/05/24 08:45 General: Normal Cardiovascular: Normal Abdominal: Soft Extremities: Normal Studies Laboratory Tests 10/05/24 08:59 Test 10/05/24 08:59 Range/Units Serum Glucose 120 H 74-106 mg/dL Ass/Plan Assessment IOL FOR GDM Plan REC ONE CYTOTEC Visit Coding OBGYN Date of Service: Oct 05, 2024 Billing Provider: SALMA CABA DO DATA MODELING SPECIALIST Common Visit Codes: 15761-ZHH/OBS SAME DATE (HIGH) DATA MODELING SPECIALIST Procedure Codes: 80215-64- NON-STRESS TEST SALMA CAAB DO Oct 05, 2024 11:20
[2024-10-05] MEDS: DERMOPLAST 60ML BOTTLE TOP PRN (11:29)
[2024-10-05] MEDS: PHISODERM TOP SOLN 240ML BTL TOP PRN (11:29)
[2024-10-05] MEDS: WITCH HAZEL-GLYCERIN PAD TOP PRN (11:29)
[2024-10-05] MEDS: miSOPROStol 50 MCG per PRE-CUT 1/2 TAB PO PRN (11:30)
[2024-10-05] MEDS: ceFAZolin 1GM/50ML 50 ML IV SCH (12:32)
[2024-10-05] MEDS ORDERED: LACTATED RINGER'S 500 ML IV ONE (13:45)
[2024-10-05] MEDS ORDERED: ceFAZolin 1GM/50ML 50 ML IV SCH (14:00)
[2024-10-05] MEDS ORDERED: ROPIVACAINE HCL 200 ML ONE (14:08)
[2024-10-05] MEDS: LIDOCAINE HCL 2 %PF INJ 10ML AMP IJ ONE ×2 (14:15→14:50)
[2024-10-05] MEDS ORDERED: ePHEDrine SULFATE 50 MG/ML AMP ONE (14:21)
[2024-10-05] MEDS: ROPIVACAINE HCL 200 ML ONE (14:49)
[2024-10-05] MEDS: ePHEDrine SULFATE 50 MG/ML AMP IV ONE (15:05)
[2024-10-05] MEDS ORDERED: LACT. RINGERS/OXYTOCIN 20UNITS 1,000 ML IV SCH (15:45)
[2024-10-05 21:00] VITALS: BP 118/66; PULSE 83; RESP 18; TEMP 98.4; O2SAT 100
[2024-10-05] MEDS: LACT. RINGERS/OXYTOCIN 20UNITS 500 ML IV ONE ×2 (21:39→21:40)
--- NOTE | 2024-10-05 21:54 | LDN2 ---
Labor and Delivery Note Date 10/05/24 Age 29 3 Para 1 AB 1 EDC 10/07/24 EGA 39w 5d Diagnosis IUP @ 39w 5days. GDMA1. Vaginal Delivery: VTX Vacuum Assisted: No Placenta: Spontaneous Sex: Female Weight 3085g (6lbs 13oz) Apgars 8 & 9 at one and five minutes of life respectively Nuchal Cord Transected: No (Nuchal cors x2; redused) Amniotic Fluid: Clear Anesthesia Labor Epidural Episiotomy: No Extension: No Repaired with N/A EBL 100mL Labs Blood Bank 10/05/24 08:59: Blood Type O POSITIVE Complications None Conditions Both Mother and baby are in stable condition Switch Box Installer Serena Comments/Significant Med Narciso At18:55, 29yo, now delivered a viable Female infant by w/ score 8 & 9 at one & five minutes of life respectively. GRAHAM position. Nuchal Cord x2. Same reduceed. placed skin to skin on pt's chest. Cord clamped and cut after pulsation ceased. Cord blood sent. Intact 3-vessel cord placenta delivered spontaneously, Alen. Pitocin IV bolus started. Placenta sent to pathology. Patient had labor epidural anesthesia. About 1cm long linear abrasion noted in left labium, no bleeding from same. Cervix and vagina inspected via SSE. Cervix and vagina intact. Fundus at U, firm, midline, and light lochia. QBL 100ml. VSS. Count correct x2. Patient to care and baby to couplet care, both stable. Visit Coding OBGYN Date of Service: Oct 05, 2024 Billing Provider: TRISTAN MEYERS CNM FOCUSED FACTORY MANAGER Common Visit Codes: 47090-BHK/OBS SAME DATE (HIGH) FOCUSED FACTORY MANAGER Procedure Codes: 08541-64- NON-STRESS TEST, 49693-IPO DELIVERY ONLY TRISTAN MEYERS CNM Oct 05, 2024 21:54
[2024-10-05] MEDS: IBUPROFEN 600 MG TAB PO PRN (22:12)
[2024-10-05] MEDS ORDERED: AMMONIA 0.33 ML INHALANT IN ONE ×2 (22:25→22:45)
[2024-10-05 22:30] VITALS: BP 113/57; PULSE 76; RESP 18; TEMP 98.4; O2SAT 100
[2024-10-06 03:30] VITALS: BP 115/75; PULSE 88; RESP 18; TEMP 98.4; O2SAT 94
[2024-10-06] MEDS: ACETAMINOPHEN 325 MG TAB PO PRN (03:31)
--- NOTE | 2024-10-06 06:37 | DVHPN2 ---
Progress Note Date Seen: Oct 06, 2024 Subjective S: Lochia minimal Tolerating regular diet well. Ambulating and voiding well w/o feeling lightheaded or dizzy. Passing flatus but no BM yet. Breast feeding. Contraceptive plan: Desires and requests to be discharged home tomorrow vital signs Vital Sign Date Time Temp Pulse Resp B/P (MAP) Pulse Ox O2 Delivery O2 Flow Rate FiO2 10/06/24 04:35 98.4 10/06/24 03:30 88 18 115/75 (88) 94 Total Intake and Output 10/05/24 10/05/24 10/06/24 15:00 23:00 07:00 Output Total 700 ml 400 ml Balance -700 ml -400 ml medications Current Medications Medications Dose Ordered Sig/Maciej Route Start Time Stop Time Status Last Admin Dose Admin Lactated Ringer's 1,000 ml @ 125 mls/hr Q8H IV 10/05/24 08:45 10/05/24 18:23 125 MLS/HR Nalbuphine HCl 10 mg Q4HP PRN IV 10/05/24 08:45 Diagnostic Test (Pha) 1 strip Q4HP PRN 10/05/24 08:45 Witch Marie 1 pad PRN PRN TOP 10/05/24 08:45 10/05/24 11:29 1 PAD Sodium Lauryl Sulfate 240 ml PRN PRN TOP 10/05/24 08:45 10/05/24 11:29 240 ML Lidocaine HCl 20 ml ONCE PRN IJ 10/05/24 08:45 Cancel Cefazolin Sodium 50 ml @ 100 mls/hr Q8HR IV 10/05/24 12:00 10/06/24 04:33 100 MLS/HR Oxytocin 1,000 ml @ 6 ml/hr Q24H IV 10/05/24 15:45 Cancel Ibuprofen 600 mg Q6HP PRN PO 10/05/24 21:30 10/05/24 22:12 600 MG Acetaminophen 650 mg Q4HP PRN PO 10/05/24 21:30 10/06/24 03:31 650 MG Docusate Sodium 200 mg HS PO 10/05/24 22:00 laboratory and microbiology Laboratory Tests 10/05/24 08:59 Test 10/05/24 08:59 Range/Units Serum Glucose 120 H 74-106 mg/dL Objective O: A&O x3 NAD. Afebrile, VSS Chest: heart and lung sounds normal. Breasts: Nipples intact w/o cracks or soreness Abdomen: normal BS, soft, non-tender, no rebound or guarding, fundus firm @ U, midline, lochia minimal Perineum:- no edema, or erythema, Extremities: no edema or tenderness Lochia - minimal Assessment/Plan 29 yo now ppd #1 s/p , doing well. Blood Type: O Rh: Positive Breast feeding Rubella Immune Pain control with oral medications Bowel regimen: Increase fluid intake and fiber in diet, Laxative PRN PP BCM Plan: undecided Discharge plan: May discharge home tomorrow if condition remains stable Plan discussed with: Patient, Spouse Visit Coding OBGYN Date of Service: Oct 06, 2024 Billing Provider: TRISTAN MEYERS CNM SEATER ASSEMBLER Common Visit Codes: [id number] INP/OBS CARE(HIGH) TRISTAN MEYERS CNM Oct 06, 2024 06:37
[2024-10-06 07:11] VITALS: BP 117/68; PULSE 81; RESP 18; TEMP 98.4; O2SAT 96
[2024-10-06 07:17] VITALS: O2SAT 97
[2024-10-06 11:13] VITALS: BP 110/67; PULSE 83; RESP 16; TEMP 98.2; O2SAT 96
[2024-10-06 18:30] VITALS: BP 109/63; PULSE 88; RESP 16; TEMP 97.9; O2SAT 98
[2024-10-06] MEDS: DOCUSATE SOD 100 MG CAP PO SCH (22:00)
[2024-10-06 23:30] VITALS: BP 103/62; PULSE 77; RESP 16; TEMP 97.9; O2SAT 97
[2024-10-07 03:10] VITALS: BP 106/69; PULSE 80; RESP 18; TEMP 98; O2SAT 97
--- NOTE | 2024-10-07 05:08 | DVHPN2 ---
Progress Note Date Seen: Oct 07, 2024 Subjective S: Lochia minimal Tolerating regular diet well. Ambulating and voiding well w/o feeling lightheaded or dizzy. Passing flatus but no BM yet. Breast feeding. Contraceptive plan: undecided, contemplating OCP. Informed of available options. Desires and requests to be discharged home today vital signs Vital Sign Date Time Temp Pulse Resp B/P (MAP) Pulse Ox O2 Delivery O2 Flow Rate FiO2 10/07/24 03:10 98.0 80 18 106/69 (81) 97 98.0 10/06/24 18:30 Room Air medications Current Medications Medications Dose Ordered Sig/Maciej Route Start Time Stop Time Status Last Admin Dose Admin Nalbuphine HCl 10 mg Q4HP PRN IV 10/05/24 08:45 Cancel Witch Marie 1 pad PRN PRN TOP 10/05/24 08:45 10/05/24 11:29 1 PAD Sodium Lauryl Sulfate 240 ml PRN PRN TOP 10/05/24 08:45 10/05/24 11:29 240 ML Lidocaine HCl 20 ml ONCE PRN IJ 10/05/24 08:45 Cancel Cefazolin Sodium 50 ml @ 100 mls/hr Q8HR IV 10/05/24 12:00 10/06/24 04:33 100 MLS/HR Oxytocin 1,000 ml @ 6 ml/hr Q24H IV 10/05/24 15:45 Cancel Ibuprofen 600 mg Q6HP PRN PO 10/05/24 21:30 10/06/24 23:07 600 MG Acetaminophen 650 mg Q4HP PRN PO 10/05/24 21:30 10/07/24 05:00 650 MG Docusate Sodium 200 mg HS PO 10/05/24 22:00 laboratory and microbiology Laboratory Tests 10/05/24 08:59 Test 10/05/24 08:59 Range/Units Serum Glucose 120 H 74-106 mg/dL Objective A&O x3 NAD. Afebrile, VSS Chest: heart and lung sounds normal. Breasts: Nipples intact w/o cracks or soreness Abdomen: normal BS, soft, non-tender, no rebound or guarding, fundus firm @ U- 1, lochia minimal Perineum:- no edema, or erythema, Extremities: no edema or tenderness Lochia - minimal Assessment/Plan 29yo now ppd#2 s/p , doing well. Blood Type: O Rh: Positive Breast feeding Rubella Immune Pain control with oral medications Bowel regimen: Increase fluid intake and fiber in diet, Laxative PRN PP BCM Plan: Undecided Discharge plan: May discharge home later today if condition remains stable Plan discussed with: Patient, Spouse Visit Coding OBGYN Date of Service: Oct 07, 2024 Billing Provider: TRISTAN MEYERS CNM QUALITY REP Common Visit Codes: [id number] INP/OBS CARE(HIGH) TRISTAN MEYERS CNM Oct 07, 2024 05:08
--- NOTE | 2024-10-07 05:17 | DVHDS2 ---
Discharge Summary Date of Admission Oct 05, 2024 at 08:26 Date of Discharge: Oct 07, 2024 Admitting Diagnosis IUP at 39w 5d.GDMA1 IOL for GDMA1 Labs/Diagnostic Data: Laboratory Results Test 10/05/24 15:12 10/05/24 08:59 10/05/24 08:45 POC Glucose 77 mg/dl (70-106) White Blood Count 6.2 10^3/uL (4.4-10.8) Red Blood Count 4.19 10^6/uL (4.0-5.20) Hemoglobin 11.4 g/dL (12.2-16.2) Hematocrit 35.6 % (36.0-46.0) Mean Corpuscular Volume 84.8 fL (80.0-100.0) Mean Corpuscular Hemoglobin 27.2 pg (28.0-32.0) Mean Corpuscular Hemoglobin Concent 32.1 g/dL (32.0-36.0) Red Cell Distribution Width 15.7 % (11.8-14.3) Platelet Count 280 10^3/uL (140-450) Mean Platelet Volume 8.7 fL (6.9-10.8) Neutrophils (%) (Auto) 73.9 % (37.0-80.0) Lymphocytes (%) (Auto) 20.4 % (10.0-50.0) Monocytes (%) (Auto) 5.0 % (0.0-12.0) Eosinophils (%) (Auto) 0.4 % (0.0-7.0) Basophils (%) (Auto) 0.3 % (0.0-2.0) Neutrophils # (Auto) 4.6 10 ^3/uL (1.6-8.6) Lymphocytes # (Auto) 1.3 10 ^3/uL (0.4-5.4) Monocytes # (Auto) 0.3 10 ^3/uL (0-1.3) Eosinophils # (Auto) 0 10 ^3/uL (0-0.8) Basophils # (Auto) 0 10 ^3/uL (0-0.2) Nucleated Red Blood Cells 0.0 % Prothrombin Time 10.4 sec (9.3-11.8) Prothrombin Time INR 0.98 (0.9-1.15) Activated Partial Thromboplast Time 28.8 SEC (24.5-34.5) Sodium Level 138 mmol/L (136-145) Potassium Level 3.1 mmol/L (3.5-5.1) Chloride Level 103 mmol/L (98-107) Carbon Dioxide Level 24 mmol/L (20-31) Anion Gap 11 (5-15) Blood Urea Nitrogen 6 mg/dL (9-23) Creatinine 0.48 mg/dL (0.550-1.02) Glomerular Filtration Rate Calc 131 mL/min (>90) BUN/Creatinine Ratio 12.5 (10.0-20.0) Serum Glucose 120 mg/dL (74-106) Calcium Level 9.5 mg/dL (8.7-10.4) Total Bilirubin 0.4 mg/dL (0.2-1.0) Aspartate Amino Transferase (AST) < 8 U/L (13-40) Alanine Aminotransferase (ALT) < 9 U/L (7-40) Alkaline Phosphatase 237 U/L (46-116) Total Protein 7.1 g/dL (5.7-8.2) Albumin 4.2 g/dL (3.2-4.8) Treponema pallidum Antibody Non-reactive (Negative) Hepatitis C Antibody Negative (Negative) Urine Color Light-orange (Yellow) Urine Clarity Turbid (Clear) Urine pH 6.0 (5.0-9.0) Urine Specific [place] 1.023 (1.001-1.035) Urine Protein Trace (Negative) Urine Ketones 1+ (Negative) Urine Blood 2+ /uL (Negative) Urine Nitrite Negative (Negative) Urine Bilirubin Negative (Negative) Urine Urobilinogen Normal mg/dL (Negative) Urine Leukocyte Esterase 3+ /uL (Negative) Urine RBC None seen /hpf (0 - 4) Urine Microscopic WBC 19 /HPF (0-5) Urine Squamous Epithelial Cells Mod /hpf (<5) Urine Bacteria Few /hpf (None Seen) Urine Mucus Few (None Seen) Urine Glucose Normal mg/dL (Normal) Urine Opiates Screen Neg (NEGATIVE) Urine Fentanyl Screen Neg (NEGATIVE) Urine Barbiturates Screen Neg (NEGATIVE) Urine Phencyclidine Screen Neg (NEGATIVE) Urine Amphetamines Screen Neg (NEGATIVE) Urine Benzodiazepines Screen Neg (NEGATIVE) Urine Cocaine Screen Neg (NEGATIVE) Urine Cannabinoids Screen Neg (NEGATIVE) Other Laboratory Tests 10/05/24 08:59 Brief Hx & Hospital Course: Admitted on 10/05/24 at 39w 5d EGA for IOL d/t GDMA1, Induction process started with cervical ripening medication and patient then had an uneventful labor, got labor epidural for pain relief. She progressed to 2nd stage of labor and had a over an intact perineum. ( See Delivery Note for details) Normal course; meeting milestones w/o any problem or complications. Operations or Procedures IOL Normal Spontaneous Vaginal Delivery Condition at Discharge: Good Final Diagnosis/Problems List at term Discharge Disposition: Home Discharge Instruct/Medications Diet: Regular Diet comment: Routine regular diet rich in fiber, protein, iron and vitamin C with adequate fluid intake. Activity: No Restrictions, As Tolerated Activity comment: Balance activities with rest periods. Advance as tolerated. No heavy lifting, pushing or straining. Pelvic rest x 6weeks self care instructions given. emergency signs and symptoms including pre-eclampsia precautions and signs of PPD reviewed with patient. Follow up with OB Provider in 1 week Medications: Ibuprofen 600mg every 6 hours as needed for pain. Continue Vitamin and iron Discharge Statement: "Patient was advised to return to the ER or call 911 if any headaches, dizziness, shortness of breath, chest pain, abdominal pain, bleeding, fevers, or worsening of medical condition. Patient was counseled about treatment plan, medications, possible side effects, patientverbalized understanding. All questions were answered to the best of my ability. This discharge took greater then 30 minutes in planning, reviewing documentation, counseling the patient, and discussing with other team members." ASSESSMENT ASSESSMENT Hospital Course Admitted on 10/05/24 at 39w 5d EGA for IOL d/t GDMA1, Induction process started with cervical ripening medication and patient then had an uneventful labor, got labor epidural for pain relief. She progressed to 2nd stage of labor and had a over an intact perineum. ( See Delivery Note for details) Normal course; meeting milestones w/o any problem or complications. Assessment Term Visit Coding OBGYN Date of Service: Oct 07, 2024 Billing Provider: TRISTAN MEYERS CNM DEMAND PLANNING MANAGER Common Visit Codes: 35559-UCN/OBS DISCH DAY <30MIN TRISTAN MEYERS CNM Oct 07, 2024 05:17
[2024-10-07 07:20] VITALS: BP 112/65; PULSE 78; RESP 16; TEMP 98.5; O2SAT 97
[2024-10-07 11:30] VITALS: BP 117/62; PULSE 74; RESP 18; TEMP 98.3; O2SAT 97
[2024-10-08 04:06] LABS: Chlamydia Trachomatis, NAA Negative (Negative); Neisseria gonorrhoeae, NAA Negative (Negative)
== END 2024-10-07 11:37 | disposition home or self-care (01) | DRG 560 ==
LOC: LDRP 08:26
PROVIDERS: ADMIT Obstetrics & Gynecology; ATTEND Obstetrics & Gynecology
PROC: 10E0XZZ Delivery of Products of Conception, External Approach (ICD-10-PCS; principal; 2024-10-05)
PROC: 3E033VJ Introduction of Other Hormone into Peripheral Vein, Percutaneous Approach (ICD-10-PCS; 2024-10-05)
PROC: 3E0DXGC Introduction of Other Therapeutic Substance into Mouth and Pharynx, External Approach (ICD-10-PCS; 2024-10-05)
PROC: 3E0P7VZ Introduction of Hormone into Female Reproductive, Via Natural or Artificial Opening (ICD-10-PCS; 2024-10-05)
PROC: 3E0R3BZ Introduction of Anesthetic Agent into Spinal Canal, Percutaneous Approach (ICD-10-PCS; 2024-10-05)
PROC: 00HU33Z Insertion of Infusion Device into Spinal Canal, Percutaneous Approach (ICD-10-PCS; 2024-10-05)
DX: O69.81X0 Labor and delivery complicated by cord around neck, without compression, not applicable or unspecified (principal); Z37.0 Single live birth; O24.420 Gestational diabetes mellitus in childbirth, diet controlled; Z3A.39 39 weeks gestation of pregnancy
CPT/HCPCS: 36415; 59409; 62282; 80053; 80307; 81001; 81002; 82948; 82962; 85025; 85610; 85730; 86780; 86803; 86850; 86900; 86901; 94760; 96360; 96361; 96365; G0378; J2590